=== PATIENT | male | born 1995 | race Caucasian/White ===

== ENCOUNTER 2019-06-17 14:08 | Emergency (ER) | payer BC ==
[~2019-06-17] VITALS: Ht 175.3 cm; Wt 81.6 kg
--- NOTE | 2019-06-17 14:10 | NUR ---
AAOX3, BIBRA 37 FROM WORK C/O SYNCOPAL EPISODE, WITNESSED BY CO-WORKER. BS=84MG/DL IN THE FIELD. RR IS EVEN AND UNLABORED WITH NAD NOTED. PLACED ON THE MONITOR. AWAITING MD FOR EVAL.
--- NOTE | 2019-06-17 14:15 | NUR ---
DR PELLETIER AT FOR EVAL.
--- NOTE | 2019-06-17 14:29 | NUR ---
TRANSPORTED FOR CT VIA [facility].
[2019-06-17] MEDS ORDERED: ACETAMINOPHEN 325 MG TABLET PO PRN (14:30)
[2019-06-17] MEDS ORDERED: IV NS 0.9% 1,000 ML IV ONE (14:30)
[2019-06-17] MEDS ORDERED: LIDOCAINE VISCOUS 2% UD 15 ML UDC MM ONE (14:30)
[2019-06-17] MEDS ORDERED: ACETAMINOPHEN 325 MG TABLET ONE (14:42)
[2019-06-17] MEDS ORDERED: LIDOCAINE VISCOUS 2% UD 15 ML UDC ONE (14:45)
[2019-06-17 14:47] LABS: BASOPHILS # (AUTO) 0.1 /CMM (0.0-0.2); BASOPHILS % (AUTO) 1.1 % (0.0-2.0); EOSINOPHILS % (AUTO) 3.7 % (0.0-6.0); HEMATOCRIT 48 % (39-51); HEMOGLOBIN 16.6 g/dL (13.5-17.5); LYMPHOCYTES # (AUTO) 2.1 /CMM (0.8-4.8); LYMPHOCYTES % (AUTO) 24.8 % (20.0-44.0); MEAN CORPUSCULAR HGB CONC 35 g/dl (31.0-36.0); MEAN CORPUSCULAR VOLUME 86 fL (80-96); MONOCYTES # (AUTO) 0.8 /CMM (0.1-1.30); MONOCYTES % (AUTO) 8.9 % (2.0-12.0); NEUTROPHILS # (AUTO) 5.3 /CMM (1.8-8.9); NEUTROPHILS % (AUTO) 61.5 % (43.0-81.0); PLATELET COUNT (AUTO) 278 /CMM (150-450); RED BLOOD CELL COUNT(AUTO) 5.57 MIL/uL (4.5-6.0); WHITE BLOOD COUNT (AUTO) 8.6 K/uL (4.3-11.0)
[2019-06-17 15:00] LABS: ALANINE AMINOTRANSFERASE 26 U/L (12-78); ALBUMIN 4.1 g/dL (3.4-5.0); ALCOHOL, BLOOD < 3 mg/dL (0-0); ALKALINE PHOSPHATASE 67 U/L (46-116); ASPARTATE AMINOTRANSFERASE 23 U/L (15-37); BILIRUBIN,TOTAL 0.3 mg/dL (0.2-1.0); CALCIUM, SERUM 9.5 mg/dL (8.5-10.1); CARBON DIOXIDE 22 mmol/L (21-32); CHLORIDE 104 mmol/L (98-107); CREATININE 1.2 mg/dL (0.6-1.3); GLUCOSE 92 mg/dL (74-106); MAGNESIUM 2.4 mg/dL (1.8-2.4); POTASSIUM 4.6 mmol/L (3.5-5.1); SODIUM SERUM 141 mmol/L (136-145); TOTAL PROTEIN, SERUM 8.1 g/dL (6.4-8.2); UREA NITROGEN, BLOOD 16 mg/dL (7-18)
[2019-06-17 16:50] VITALS: BP 119/80
--- NOTE | 2019-06-17 16:50 | NUR ---
Patient discharged to home in stable condition. Written and verbal after care instructions given. Patient verbalizes understanding of instruction. IV removed. Catheter intact and site benign. Pressure and 4x4 applied to site. No bleeding noted.
== END 2019-06-17 16:51 | disposition home or self-care (01) ==
LOC: ER 14:13
DX: S01.512A Laceration without foreign body of oral cavity, initial encounter (principal); R55 Syncope and collapse; R51 Headache; Z60.2 Problems related to living alone; W18.39XA Other fall on same level, initial encounter; Y93.89 Activity, other specified; Y92.89 Other specified places as the place of occurrence of the external cause; Y99.0 Civilian activity done for income or pay
CPT/HCPCS: 36415; 70450; 80053; 80307; 83735; 85025; 93005; 96360; 99284; J7030; G0480

== ENCOUNTER 2019-06-17 17:38 | Emergency (ER) | payer BC ==
[~2019-06-17] VITALS: Ht 175.3 cm; Wt 85.7 kg
--- NOTE | 2019-06-17 17:46 | NUR ---
MICHAEL 87 FROM WORK C/O WITNESSED SEIZURE, +ORAL TRAUMA CA=445QN/DL IN THE FIELD. PT AAOX4, VSS. RR EVEN & UNLABORED. DENIES CP, SOB, DIZZINESS, N/V, WEAKNESS AT THIS TIME. PT SEEN & EVAL'D BY DR. PELLETIER. PLACED ON SEIZURE PRECAUTION & WILL CONT TO MONITOR.
[2019-06-17] MEDS ORDERED: LEVETIRACETAM (500MG) 1,000 MG in IV NS 0.9% 100 ML IV SCH (18:30)
--- NOTE | 2019-06-17 20:05 | NUR ---
PT ACCOMPANIED BY MOM UPON DC.
[2019-06-17 20:06] VITALS: BP 114/68
== END 2019-06-17 20:07 | disposition home or self-care (01) ==
LOC: ER 17:42
DX: S01.512A Laceration without foreign body of oral cavity, initial encounter (principal); G40.909 Epilepsy, unspecified, not intractable, without status epilepticus; F10.10 Alcohol abuse, uncomplicated; Y90.9 Presence of alcohol in blood, level not specified; Z60.2 Problems related to living alone; X58.XXXA Exposure to other specified factors, initial encounter; Y93.89 Activity, other specified; Y92.89 Other specified places as the place of occurrence of the external cause; Y99.8 Other external cause status
CPT/HCPCS: 82962; 96365; 99283; J1953; J7030